=== PATIENT | male | born 1960 | race Caucasian/White ===

== ENCOUNTER 2019-05-08 13:06 | Emergency (ER) | payer OTHER ==
[2019-05-08 13:16] VITALS: BP 170/101; PULSE 111; TEMP 98.3; BMI 30.4
[2019-05-08] MEDS ORDERED: DIPHTH,PERTUSS(ACELL),TET 0.5 ML DISP.SYRIN IM ONE ×2 (13:42→14:00)
--- NOTE | 2019-05-08 13:42 | PDOC ---
History of Present Illness - General Chief Complaint: Injury Stated Complaint: FALL, LACS-ABRASIONS VERONICA HANDS, LFA Time Seen by Provider: 05/08/19 13:41 Past History - Past History Allergies/Adverse Reactions: Allergies No Known Allergies Allergy (Verified 05/08/19 13:08) Home Medications: Ambulatory Orders Glimepiride mg PO DAILY 05/08/19 Levothyroxine Sodium [Synthroid] mcg PO DAILY 05/08/19 Lisinopril mg PO DAILY 05/08/19 Metformin HCl [Glucophage] mg PO BID 05/08/19 - Social History Smoking Status: Never smoked *Physical Exam - Vital Signs Last Vital Signs Temp Pulse Resp BP Pulse Ox 98.3 F 111 H 18 170/101 H 100 05/08/19 13:06 05/08/19 13:06 05/08/19 13:06 05/08/19 13:06 05/08/19 13:06 *DC/Admit/Observation/Transfer - Discharge Dispostion Condition at time of disposition: Stable - Referrals Referrals: Phoebe Lazaro [Primary Care Provider] - - Patient Instructions - Post Discharge Activity
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
[2019-05-08] MEDS ORDERED: ACETAMINOPHEN 325 MG TABLET (FP) ONE (14:54)
[2019-05-08] MEDS ORDERED: ACETAMINOPHEN 325 MG TABLET (FP) PO ONE (15:40)
== END 2019-05-08 15:45 | disposition home or self-care (01) ==
LOC: FER 13:06
PROC: 0HQEXZZ Repair Left Lower Arm Skin, External Approach (ICD-10-PCS; principal; 2019-05-08)
PROC: 3E0234Z Introduction of Serum, Toxoid and Vaccine into Muscle, Percutaneous Approach (ICD-10-PCS; 2019-05-08)
DX: S51.012A Laceration without foreign body of left elbow, initial encounter (principal); V18.2XXA Unspecified pedal cyclist injured in noncollision transport accident in nontraffic accident, initial encounter; Y93.9 Activity, unspecified; Y92.9 Unspecified place or not applicable; E11.9 Type 2 diabetes mellitus without complications; E78.00 Pure hypercholesterolemia, unspecified
CPT/HCPCS: 90715; 99283-25